=== PATIENT | male | born 1970 | race African-American/Black ===

== ENCOUNTER 2016-05-21 23:59 | Emergency (ER) | payer OTHER ==
[~2016-05-21 23:59] MED LIST: ANTIVERT PO
== END 2016-05-22 02:26 | disposition home or self-care (01) ==
LOC: CED 23:59
DX: K08.89 Other specified disorders of teeth and supporting structures (principal)
CPT/HCPCS: 99282

== ENCOUNTER 2016-05-22 20:48 | Emergency (ER) | payer OTHER ==
--- NOTE | ~2016-05-22 | EKG ---
PATIENT: STANISLAV BLACKWOOD UNIT #: [id number] Ventricular Rate: 84 BPM Atrial Rate: 84 BPM P-R Interval: 158 ms QRS Duration: 78 ms Q-T Interval: 362 ms QTC Calculation(Bezet): 427 ms P Ridgeley: 65 degrees Calculated R Ridgeley: 31 degrees Calculated T Ridgeley: 10 degrees Diagnosis Line: Normal sinus rhythm Diagnosis Line: Normal ECG Diagnosis Line: When compared with ECG of 12-DEC-2009 07:22, Diagnosis Line: Vent. rate has increased BY 31 BPM Diagnosis Line: Confirmed by DEV CAMPBELL MD ([id number]) on 05/24/2016 Diagnosis Line: 10:59:27 PM INTERPRETING MD: ADRIAN JIANG
--- NOTE | ~2016-05-22 | CR72 ---
[facility] A Service of [facility] RADIOLOGY TEXT RESULTS PATIENT: STANISLAV BLACKWOOD LOCATION: [facility] : [birth year] UNIT #: [id number] AGE: [address]: Sandra Sweeney MD SEX: M ORDER DR: [id number] [facility] [address] [place], [place] [address] [id number] E MR#: [id number] Acc #: [id number] NAME: STANISLAV BLACKWOOD : 1970 SEX: M STUDY DATE/TIME: 05/22/2016 20:39 UNIT: [facility] ROOM: STUDY DESCRIPTION: CR Chest Single View Portable Attending Physician: Sandra Sweeney M.D. Ordering Physician: Sandra Sweeney M.D. Primary Care Physician: Primary Care Physician No MEDICAL IMAGING REPORT This report is preliminary unless electronic signature is present EXAM Portable chest, 05/22/2016 HISTORY Chest pain and swelling for 1 day. No injury. FINDINGS A single AP portable view of the chest shows both lungs to be clear. The heart is normal in size. The mediastinal contour is normal. No significant bone abnormalities are seen. IMPRESSION Normal portable chest. Dictated by... Virgil Bello M.D. THIS IS AN ELECTRONICALLY VERIFIED REPORT Virgil Bello M.D. at 05/23/2016 2:48 PM DANE/aura TD: 05/23/2016 03:10 JOB #: [id number] MEDICAL IMAGING REPORT Page 1 of 1 COPY
[2016-05-22 20:52] LABS: BASOPHIL% 0.3 % (0-2.5); EOSINOPHIL# 0.2 X10e3 (0-0.7); HEMATOCRIT 44.3 % (38.0-50.0); HEMOGLOBIN 14.9 gm/dL (13.0-16.0); LYMPHOCYTE# 1.9 X10e3 (1.0-3.5); LYMPHOCYTE% 40.2 % (17.0-45.0); MEAN CORPUSCULAR HGB CONC 33.7 g/dL (30-36); MEAN PLATELET VOLUME 8.8 FL (6.5-11.5); MONOCYTE# 0.7 X10e3 (0-1.0); MONOCYTE% 14.4 % (3.0-12.0); NEUTROPHIL# 1.9 X10e3 (1.5-7.1); NEUTROPHIL% 41.1 % (40-75); PLATELET COUNT 173 X10e3 (140-420); RED BLOOD COUNT 4.98 X10e (3.90-5.60); RED CELL DISTRIBUTION WIDTH 13.4 % (11.0-15.5); WHITE BLOOD COUNT 4.6 X10e3 (4.0-10.5)
[2016-05-22 20:57] LABS: DIFF IND NO
[2016-05-22 21:02] LABS: POC - CKMB 1.3 ng/mL (0.0-7.9); POC - TROPONIN <0.05 ng/mL (<=0.05)
[2016-05-22 21:13] LABS: ALBUMIN SERUM 4.9 g/dL (3.5-5.0); BILIRUBIN, DIRECT 0.1 mg/dL (0.0-0.2); BILIRUBIN,INDIRECT 0.7 mg/dL (0.0-0.9); BILIRUBIN,TOTAL 0.8 mg/dL (0.2-2.0); CALCIUM SERUM 9.8 mg/dL (8.4-10.2); GLOM FILT RATE Estimated 104.2 mL/min (>60); POTASSIUM 3.7 mmol/L (3.5-5.1); PROTEIN TOTAL SERUM 8.1 g/dL (6.0-8.3)
== END 2016-05-22 22:15 | disposition home or self-care (01) ==
LOC: CED 20:48
PROVIDERS: Student in an Organized Health Care Education/Training Program
DX: I10 Essential (primary) hypertension (principal)
CPT/HCPCS: 36415; 71010; 80048; 80076; 82553; 82947; 83880; 84484; 85025; 93005; 99283

== ENCOUNTER → 2016-07-19 | Outpatient (CLI) | payer OTHER | END | disposition home or self-care (01) | LOC: CECH 13:45 | DX: I10 Essential (primary) hypertension (principal); I51.7 Cardiomegaly | CPT/HCPCS: 93306 ==

== ENCOUNTER 2016-08-28 21:39 | Emergency (ER) | payer OTHER ==
--- NOTE | ~2016-08-28 | US85 ---
[facility] A Service [facility] RADIOLOGY TEXT RESULTS PATIENT: STANISLAV BLACKWOOD LOCATION: [facility] : 68 UNIT #: [id number] AGE: [address]: Kelvin Daniels MD SEX: M ORDER DR: [id number] [facility]. [place], [place] [address] [id number] E MR#: [id number] Acc #: [id number] NAME: STANISLAV BLACKWOOD : 1970 SEX: M STUDY DATE/TIME: 08/29/2016 0:00 UNIT: [facility] ROOM: STUDY DESCRIPTION: [employer] Attending Physician: Kelvin Daniels M.D. Ordering Physician: Kelvin Daniels M.D. Primary Care Physician: Tru Laurent M.D. MEDICAL IMAGING REPORT This report is preliminary unless electronic signature is present EXAM Left lower extremity venous ultrasound. INDICTIONS Left lower extremity pain for 5 days. The patient was on blood thinners back in 2000 after DVT. TECHNIQUE Venous ultrasound examination of the left lower extremity was performed using grayscale, spectral Doppler and color flow Doppler imaging. FINDINGS The examination is negative. There is no evidence of left lower extremity deep venous thrombus from the groin to the lower calf. Visualized greater saphenous vein is also patent. IMPRESSION Negative examination. No evidence of left lower extremity deep venous thrombosis. Dictated by... Rhys Myles M.D. THIS IS AN ELECTRONICALLY VERIFIED REPORT Rhys Myles M.D. at 08/29/2016 1:36 PM GT/escobar TD: 08/29/2016 12:46 JOB #: [id number] [facility] A Service of [facility] RADIOLOGY TEXT RESULTS PATIENT: STANISLAV BLACKWOOD LOCATION: [facility] : 68 UNIT #: [id number] AGE: [address]: Kelvin Daniels MD SEX: M ORDER DR: MEDICAL IMAGING REPORT Page 1 of 1 COPY
== END 2016-08-29 00:50 | disposition home or self-care (01) ==
LOC: CED 21:39
DX: M79.662 Pain in left lower leg (principal); Z86.718 Personal history of other venous thrombosis and embolism; Z98.890 Other specified postprocedural states
CPT/HCPCS: 93971; 99284